=== PATIENT | male | born 1950 | race Caucasian/White ===

== ENCOUNTER 2017-08-21 17:33 | Inpatient (IN) | payer MEDICARE ==
[~2017-08-21] VITALS: Ht 157.5 cm; Wt 76.6 kg
[2017-08-21 18:13] LABS: BASOPHILS 0.1 % (0-2); EOSINOPHILS 0.1 % (0-7); HEMOGLOBIN 16.1 g/dL (13.5-17.5); IMMATURE GRANULOCYTES 0.3 % (0-5); LYMPHOCYTES 2.2 % (15-50); MCH 31.6 pg (26.0-34.0); MCHC 33.5 g/dL (31.0-37.0); MCV 94.3 fL (80.0-100.0); MEAN PLATELET VOLUME 9.8 fL (7.4-10.4); MONOCYTES 2.2 % (2-11); NEUTROPHILS 95.1 % (40-80); PLATELET COUNT 272 10x3/uL (130-400); RBC 5.09 10x6/uL (4.20-6.10); RDW 12.6 % (11.5-14.5); WBC 17.7 10x3/uL (4.8-10.8)
[2017-08-21 18:29] LABS: ALBUMIN 4.3 g/dL (3.4-5.0); ANION GAP 14.3 mmol/L (8-16); BILIRUBIN - TOTAL 0.33 mg/dL (0.2-1.3); CALCIUM 9.4 mg/dL (8.5-10.1); CREATININE - SERUM 1.2 mg/dL (0.6-1.3); POTASSIUM - SERUM 4.3 mmol/L (3.5-5.1); PROTEIN - SERUM 8.1 g/dL (6.4-8.2)
[2017-08-21 18:33] LABS: APTT 39.3 SECONDS (22.8-39.4); INR 2.39 (0.85-1.17); PROTIME 26.2 SECONDS (11.6-15.0)
[2017-08-21 20:10] LABS: APPEARANCE CLEAR (CLEAR); COLOR YELLOW (YELLOW); NITRITE NEGATIVE (NEGATIVE); PROTEIN TRACE mg/dL (NEGATIVE); SPECIFIC GRAVITY 1.025 (1.005-1.020)
[2017-08-21 20:11] LABS: BILIRUBIN NEGATIVE (NEGATIVE); GLUCOSE 50 mg/dL (NEGATIVE); KETONE NEGATIVE (NEGATIVE); UROBILINOGEN NORMAL (NORMAL)
--- NOTE | 2017-08-21 22:30 | NUR ---
PT ARRIVED TO MEDICAL SURGICAL UNIT WITH AND HOSPITAL STAFF, PT ALERT AND ORIENTED.
[2017-08-21] MEDS ORDERED: CORDARONE200 MG PO (23:30)
[2017-08-21] MEDS ORDERED: LISINOPRIL5 MG PO (23:30)
[2017-08-21] MEDS ORDERED: TYLENOL PM1 TAB PO (23:31)
[2017-08-21] MEDS ORDERED: IBUPROFEN400 MG PO (23:33)
[2017-08-21] MEDS ORDERED: COUMADIN1 MG PO (23:34)
[2017-08-21 23:38] VITALS: BP 119/71; BMI 30.8
[2017-08-22] VITALS (13 sets, daily range): BP systolic 116–146; BP diastolic 56–89; Ht 157.5 cm; Wt 76.6 kg
--- NOTE | 2017-08-22 03:20 | NUR ---
PT HAS SMALL AMOUNT OF BLOOD CLOT FROM RECTAL AREA.
--- NOTE | 2017-08-22 03:54 | NUR ---
REST QUIETLY IN BED, EYE CLOSE, CALL LIGHT IN REACH.
--- NOTE | 2017-08-22 07:17 | NUR ---
REPORT RECEIVED, ASSUMED CARE OF PT. RESTING, FAMILY AT BEDSIDE. R AC IV INFUSINGS ORDERED, DRSG C/D/I. NO NEEDS VOICED AT THIS TIME. BED IN LOWEST POSITION, SIDE RAILS UP X 2, CALL LIGHT WITHIN REACH.
[2017-08-22 09:33] LABS: BASOPHILS 0.1 % (0-2); EOSINOPHILS 0.5 % (0-7); HEMATOCRIT 43.5 % (42.0-54.0); HEMOGLOBIN 14.3 g/dL (13.5-17.5); IMMATURE GRANULOCYTES 0.2 % (0-5); LYMPHOCYTES 9.6 % (15-50); MCH 31.3 pg (26.0-34.0); MCHC 32.9 g/dL (31.0-37.0); MCV 95.2 fL (80.0-100.0); MEAN PLATELET VOLUME 9.8 fL (7.4-10.4); MONOCYTES 6.5 % (2-11); NEUTROPHILS 83.1 % (40-80); RBC 4.57 10x6/uL (4.20-6.10); RDW 12.9 % (11.5-14.5); WBC 13.3 10x3/uL (4.8-10.8)
[2017-08-22 09:42] LABS: PLATELET COUNT 209 10x3/uL (130-400)
[2017-08-22 10:19] LABS: ALBUMIN 3.4 g/dL (3.4-5.0); ANION GAP 14.1 mmol/L (8-16); BILIRUBIN - TOTAL 0.39 mg/dL (0.2-1.3); CALCIUM 8.5 mg/dL (8.5-10.1); CARBON DIOXIDE 25.6 mmol/L (21.0-32.0); CREATININE - SERUM 1.1 mg/dL (0.6-1.3); POTASSIUM - SERUM 3.7 mmol/L (3.5-5.1); PROTEIN - SERUM 6.2 g/dL (6.4-8.2)
--- NOTE | 2017-08-22 13:55 | NUR ---
REPORT CALLED TO ZAHIRA IN ICU, WILL CALL BACK WHEN READY FOR TRANSFER AFTER ROOM CLEANED.
--- NOTE | 2017-08-22 14:00 | NUR ---
PT TRANSFERRED VIA WHEELCHAIR TO ICU
--- NOTE | 2017-08-22 19:15 | NUR ---
RECEIVED CARE OF PT, ASSESSMENT PER FLOWSHEET. PT ALERT AND ORIENTED X 4, ON RA, BREATH SOUNDS CTA, CAF ON CM AT A RATE OF 84, PPP. C/O SOME TENDERNESS WITH PALP OVER LT UPPER QUADRANT OF ABDOMEN. ASSISTED PT TO BSC, VOIDED HALF-DOLLAR SIZE AMT OF BRIGHT RED BLOOD WITH SMALL CLOTS-PROVIDED OWN PERICARE AND BACK TO BED WITHOUT DIFFICULTY. VSS, CALL LIGHT IN REACH, WILL MONITOR.
--- NOTE | 2017-08-22 19:59 | NUR ---
PT C/O NAUSEA AND ABDOMINAL PAIN 5/10 ON VPS, PRN ZOFRAN 4MG AND OXYCODONE 5/325MG ADMINISTERED PER MD ORDER AND PT REQUEST, WILL MONITOR.
--- NOTE | 2017-08-22 21:30 | NUR ---
PT AND SON IN ROOM, UPDATED REGARDING PT CONDITION AND PLAN, ALL VERBALIZE UNDERSTANDING. ASSISTED PT TO BSC, VOIDED 1/2CM X 1/2CM SPOT OF BRIGHT RED BLOOD PER RECTUM, PROVIDED OWN PERICARE, BACK TO BED WITH MINIMAL ASSIST.
--- NOTE | 2017-08-22 22:10 | NUR ---
JELLO AND ICE WATER PROVIDED PER REQUEST, PT CONSUMED 100%, DENIES PAIN OR ANY NEEDS AT THIS TIME. VSS
--- NOTE | 2017-08-22 23:30 | NUR ---
REASSESSMENT PER FLOWSHEET, NO ACUTE CHANGES NOTED AT THIS TIME. VSS, CONT POC.
[2017-08-23] VITALS (21 sets, daily range): BP systolic 101–136; BP diastolic 61–96
[2017-08-23 03:34] LABS: BASOPHILS 0.2 % (0-2); HEMATOCRIT 37.8 % (42.0-54.0); HEMOGLOBIN 12.4 g/dL (13.5-17.5); IMMATURE GRANULOCYTES 0.3 % (0-5); LYMPHOCYTES 9.6 % (15-50); MCH 31.5 pg (26.0-34.0); MCHC 32.8 g/dL (31.0-37.0); MCV 95.9 fL (80.0-100.0); MEAN PLATELET VOLUME 9.8 fL (7.4-10.4); MONOCYTES 8.6 % (2-11); NEUTROPHILS 79.3 % (40-80); RBC 3.94 10x6/uL (4.20-6.10)
[2017-08-23 03:35] LABS: PLATELET COUNT 154 10x3/uL (130-400); WBC 6.4 10x3/uL (4.8-10.8)
[2017-08-23 03:48] LABS: INR 2.07 (0.85-1.17); PROTIME 23.4 SECONDS (11.6-15.0)
--- NOTE | 2017-08-23 03:50 | NUR ---
PT RESTING IN BED WITH EYES CLOSED, VSS, CONT POC.
[2017-08-23 03:53] LABS: ALBUMIN 3.1 g/dL (3.4-5.0); ALKALINE PHOSPHATASE 76 U/L (46-116); ALT (SGPT) 33 U/L (10-68); AMYLASE - SERUM 31 U/L (25-115); BILIRUBIN - TOTAL 0.61 mg/dL (0.2-1.3); CALC OSMOLALITY 291 mosm/kg (275-300); CALCIUM 8.2 mg/dL (8.5-10.1); CARBON DIOXIDE 27.1 mmol/L (21.0-32.0); CHLORIDE - SERUM 110 mmol/L (98-107); GLUCOSE 89 mg/dL (74-106); LIPASE 97 U/L (73-393); POTASSIUM - SERUM 4.1 mmol/L (3.5-5.1); PROTEIN - SERUM 5.8 g/dL (6.4-8.2); SODIUM 146 mmol/L (136-145); UREA NITROGEN 17 mg/dL (7-18); eGFR NON AFRICAN AMERICAN 79 mL/min (90-120)
--- NOTE | 2017-08-23 05:23 | NUR ---
AM LABS REVIEWED, NOTHING TO TREAT PER ELECTROLYTE PROTOCOL. PT RESTING IN BED WITH EYES CLOSED, VSS, CONT POC.
--- NOTE | 2017-08-23 19:15 | NUR ---
RESUMED CARE OF PT, ASSESSMENT PER FLOWSHEET. PT ALERT AND ORIENTED X 4, SITTING UP IN BED IN NO APPARENT DISTRESS, HR CAF AT 79 ON MONITOR, BREATH SOUNDS CTA, PPP, RUQ ABD MILDLY TENDER TO PALP, C/O ABD PAIN 2/10 ON VPS, DOES NOT REQUEST ANYTHING FOR PAIN AT THIS TIME, BED LOW CALL LIGHT IN REACH, ALL OTHER VSS.
--- NOTE | 2017-08-23 19:37 | NUR ---
REPORT CALLED TO [facility] ON [facility], ALL QUESTIONS ANSWERED.
--- NOTE | 2017-08-23 19:59 | NUR ---
PT TRANSFERRED TO ROOM 2227 VIA W/C, ACCEPTING RNLENO IN ROOM. URINAL PROVIDED, BED LOW, CALL LIGHT IN REACH.
--- NOTE | 2017-08-23 20:00 | NUR ---
ARRIVED ON UNIT VIA WHEELCHAIR ESCORTED BY ICU NURSES. ORIENTED TO ROOM AND CALL LIGHT SYSTEM. IV FLUIDS TO RIGHT AC AT 100 ML / HR PER ORDER. TEACHING DONE ON NEED FOR STOOL SAMPLE COLLECTION. VITALS STABLE AND PT IS AFEBRILE. WILL MONITOR CLOSLEY FOR NEEDS. CALL LIGHT WITHIN REACH. BED IN LOWEST POSITION AND LOCKED. SIDE RAILS UP X2 FOR SAFETY.
--- NOTE | 2017-08-23 20:25 | NUR ---
HS MEDICATIONS GIVEN. GAVE SNACK OF JELLO AND JUICE. WILL CONTINUE TO MONITOR FOR NEEDS. IS AT BEDSIDE.
--- NOTE | 2017-08-23 20:40 | NUR ---
COLLECTED STOOL AND DELIVERED TO LAB FOR ORDERED LAB STUDIES.
--- NOTE | 2017-08-23 21:42 | NUR ---
GAVE BENADRYL AND PERCOCET PER PRN ORDERS FOR PAIN AND TO AIDE IN SLEEP. WILL CONTINUE TO MONITOR FOR NEEDS.
[2017-08-24 05:07] VITALS: BP 139/77
[2017-08-24 06:51] LABS: BASOPHILS 0.3 % (0-2); EOSINOPHILS 2.8 % (0-7); HEMOGLOBIN 12.7 g/dL (13.5-17.5); LYMPHOCYTES 11.6 % (15-50); MCH 31.1 pg (26.0-34.0); MCHC 32.6 g/dL (31.0-37.0); MCV 95.4 fL (80.0-100.0); MEAN PLATELET VOLUME 9.7 fL (7.4-10.4); MONOCYTES 8.7 % (2-11); NEUTROPHILS 76.6 % (40-80); PLATELET COUNT 155 10x3/uL (130-400); RBC 4.09 10x6/uL (4.20-6.10); RDW 12.6 % (11.5-14.5); WBC 5.8 10x3/uL (4.8-10.8)
[2017-08-24 07:08] LABS: INR 1.92 (0.85-1.17)
[2017-08-24 07:09] LABS: CALC OSMOLALITY 290 mosm/kg (275-300); CALCIUM 8.4 mg/dL (8.5-10.1); CARBON DIOXIDE 27.1 mmol/L (21.0-32.0); CHLORIDE - SERUM 109 mmol/L (98-107); GLUCOSE 95 mg/dL (74-106); POTASSIUM - SERUM 3.8 mmol/L (3.5-5.1); SODIUM 146 mmol/L (136-145); eGFR NON AFRICAN AMERICAN 79 mL/min (90-120)
[2017-08-24 07:10] LABS: UREA NITROGEN 12 mg/dL (7-18)
--- NOTE | 2017-08-24 07:25 | NUR ---
REPORT RECEIVED FROM MEDICAL COLLECTIONS NURSE. CALL LIGHT IN REACH.
--- NOTE | 2017-08-24 08:08 | NUR ---
ASSESSMENT COMPLETED. DENIES PAIN OR NEEDS. CALL LIGHT IN REACH. WILL CONTINUE WITH PLAN OF CARE.
[2017-08-24 08:14] VITALS: BP 127/74
--- NOTE | 2017-08-24 08:17 | NUR ---
OFFERED SCDs BUT REFUSED.
--- NOTE | 2017-08-24 09:30 | NUR ---
IV CONVERTED TO SL PER PATIENT REQUEST TO SHOWER. PATIENT AND FAMILY ASKING ABOUT COLONOSCOPY TOMORROW. EXPLAINED THE ORDER HAD NOT BEEN PLACED YET AND THE GI DOCTOR WOULD BE THE ONE TO DECIDE THE DATE. VOICED UNDERSTANDING.
--- NOTE | 2017-08-24 10:12 | NUR ---
AM MEDS ADMINISTERED. DILAUDID 1 MG SIVP. REFUSES SCDs. [facility] PLACED IN ROOM FOR STOOL SAMPLE FOR OB. PATIENT AWARE.
[2017-08-24 11:51] VITALS: BP 124/88
--- NOTE | 2017-08-24 12:13 | NUR ---
WANTED IV MOVED TO ANOTHER SITE. ATTEMPTED TO RESITE IT TO RIGHT HAND WITH 20 GA X1 STICK WITH NO SUCCESS. PATIENT DID NOT WANT ME TO ATTEMPT IT AGAIN.
--- NOTE | 2017-08-24 12:22 | NUR ---
FSBS 92. SPOKE WITH FRANK COOPER, ABOUT STOPPING BLOOD SUGARS. STATES IT IS OK.
--- NOTE | 2017-08-24 14:28 | NUR ---
FLAGYL 500 MG IVPB PER ORDER. WAITING ON DR. RAMOS TO ROUND. EXPLAINED TO THEM THAT IT MIGHT BE AFTER CLINIC WHEN SHE CAN MAKE IT.
[2017-08-24 16:05] VITALS: BP 115/57
--- NOTE | 2017-08-24 16:55 | NUR ---
DENIES NEEDS AT THIS TIME. CALL LIGHT IN REACH.
--- NOTE | 2017-08-24 18:30 | NUR ---
NO CHANGES IN INITIAL ASSESSMENT. CALL LIGHT IN REACH. STILL REFUSES SCDs. WILL CONTINUE WITH PLAN OF CARE.
[2017-08-24 20:21] VITALS: BP 122/59
--- NOTE | 2017-08-24 23:50 | NUR ---
1939)REC'D IN BED WATCHING TV.FAMILY MEMBER AT BEDSIDE.DENIES ANY PAIN OR DISCOMFORT AT PRESENT TIME.PREP STARTED FOR EGD 08/25/17. REINFORCED NPO AT OK. VOICES UNDERSTANDING
[2017-08-25 03:50] VITALS: BP 153/74
[2017-08-25 07:29] LABS: ALBUMIN 3.2 g/dL (3.4-5.0); ALKALINE PHOSPHATASE 79 U/L (46-116); ALT (SGPT) 43 U/L (10-68); BILIRUBIN - TOTAL 0.33 mg/dL (0.2-1.3); CALC OSMOLALITY 293 mosm/kg (275-300); CALCIUM 8.2 mg/dL (8.5-10.1); CARBON DIOXIDE 29.1 mmol/L (21.0-32.0); CHLORIDE - SERUM 111 mmol/L (98-107); GLUCOSE 111 mg/dL (74-106); POTASSIUM - SERUM 3.5 mmol/L (3.5-5.1); PROTEIN - SERUM 6.4 g/dL (6.4-8.2); SODIUM 148 mmol/L (136-145); UREA NITROGEN 9 mg/dL (7-18); eGFR NON AFRICAN AMERICAN 79 mL/min (90-120)
[2017-08-25 07:34] LABS: BASOPHILS 0.2 % (0-2); HEMATOCRIT 39.7 % (42.0-54.0); HEMOGLOBIN 13.2 g/dL (13.5-17.5); IMMATURE GRANULOCYTES 0.2 % (0-5); LYMPHOCYTES 10.5 % (15-50); MCH 30.9 pg (26.0-34.0); MCHC 33.2 g/dL (31.0-37.0); MEAN PLATELET VOLUME 10.1 fL (7.4-10.4); MONOCYTES 10.7 % (2-11); NEUTROPHILS 76.4 % (40-80); PLATELET COUNT 165 10x3/uL (130-400); RBC 4.27 10x6/uL (4.20-6.10); RDW 12.6 % (11.5-14.5); WBC 5.5 10x3/uL (4.8-10.8)
[2017-08-25 07:39] LABS: INR 1.88 (0.85-1.17); PROTIME 21.6 SECONDS (11.6-15.0)
--- NOTE | 2017-08-25 08:15 | NUR ---
PT RESTING IN BED WITH EYES OPEN CALL LIGHT IN REACH WILL MONITER
[2017-08-25 08:38] VITALS: BP 137/71
--- NOTE | 2017-08-25 12:30 | NUR ---
PT TO GI LAB FOR COLONOSCOPY
[2017-08-25 12:56] VITALS: BP 143/54
--- NOTE | 2017-08-25 12:57 | NUR ---
PT SEEN. FOR GI LAB THIS DAY. STATES HAS BEEN NPO SINCE MIDNIGHT-DID NOT PASS ANY BLOOD DURING PREP-BUT DID HAVE SOME NAUSEA AND VOMITED SOME OF THE PREP UP. STAES NO CRAMPING TO LOWER ABDOMEN. CALL LIGHT IN REACH
--- NOTE | 2017-08-25 13:59 | NUR ---
NUTRITION F/U CHART REVIEWED, PT OOR FOR PROCEDURE. CURRENTLY NPO. WILL PROVIDE DIET WHEN RESUMED, MONITOR PO INTAKE. RD FOLLOWING
[2017-08-25 16:29] VITALS: BP 152/77
--- NOTE | 2017-08-25 17:49 | NUR ---
PT RESTING IN BED WITH EYES OPEN CALL LIGHT IN REACH WILL MONITER
[2017-08-25 20:00] VITALS: BP 129/69
--- NOTE | 2017-08-25 20:18 | NUR ---
REC'D. IN BED EYES CLOSED RESP. DEEP AND EVEN.WILL CONTINUE TO MONITOR FOR ANY CHGES. AND FOLLOW CURRENT PLAN OF CARE
[2017-08-26 04:00] VITALS: BP 120/59
--- NOTE | 2017-08-26 05:44 | NUR ---
PATIENT RESTING IN BED WITH EYES CLOSED AND NO VISIBLE SIGNS OF DISTRESS. BED IN LOWEST POSITION AND CALL LIGHT WITHIN REACH.
[2017-08-26 06:04] LABS: BASOPHILS 0.2 % (0-2); EOSINOPHILS 2.9 % (0-7); HEMATOCRIT 37.5 % (42.0-54.0); HEMOGLOBIN 12.6 g/dL (13.5-17.5); IMMATURE GRANULOCYTES 0.2 % (0-5); LYMPHOCYTES 11.2 % (15-50); MCHC 33.6 g/dL (31.0-37.0); MCV 92.4 fL (80.0-100.0); MEAN PLATELET VOLUME 10.3 fL (7.4-10.4); MONOCYTES 9.5 % (2-11); PLATELET COUNT 190 10x3/uL (130-400); RBC 4.06 10x6/uL (4.20-6.10); RDW 12.7 % (11.5-14.5); WBC 4.8 10x3/uL (4.8-10.8)
[2017-08-26 06:26] LABS: ALBUMIN 2.8 g/dL (3.4-5.0); ALKALINE PHOSPHATASE 69 U/L (46-116); ALT (SGPT) 42 U/L (10-68); CALC OSMOLALITY 291 mosm/kg (275-300); CALCIUM 8.3 mg/dL (8.5-10.1); CARBON DIOXIDE 28.8 mmol/L (21.0-32.0); CHLORIDE - SERUM 111 mmol/L (98-107); GLUCOSE 130 mg/dL (74-106); POTASSIUM - SERUM 3.1 mmol/L (3.5-5.1); PROTEIN - SERUM 5.7 g/dL (6.4-8.2); SODIUM 147 mmol/L (136-145); UREA NITROGEN 7 mg/dL (7-18); eGFR NON AFRICAN AMERICAN 79 mL/min (90-120)
--- NOTE | 2017-08-26 07:22 | NUR ---
PT NOTE. NO COMPLAINTS THIS AM. STATES SMALL AMOUNT OF BLEEDING THIS AM WITHS STOOL. STATES LOW ABDOMEN IS LESS TENDER THIS AM. CALL LIGHT IN REACH
--- NOTE | 2017-08-26 07:25 | NUR ---
REPORT RECEIVED FROM LEGAL REFEREE NURSE. CALL LIGHT IN REACH.
[2017-08-26 08:36] VITALS: BP 155/90
--- NOTE | 2017-08-26 08:45 | NUR ---
ASSESSMENT COMPLETED. REFUSES SCDs. CALL LIGHT IN REACH. WILL CONTINUE WITH PLAN OF CARE.
[2017-08-26 10:31] LABS: INR 1.77 (0.85-1.17); PROTIME 20.6 SECONDS (11.6-15.0)
--- NOTE | 2017-08-26 10:55 | NUR ---
AM MEDS ADMINISTERED. CALL LIGHT IN REACH.
--- NOTE | 2017-08-26 12:16 | NUR ---
AISHA PO. CALL LIGHT IN REACH.
[2017-08-26 14:20] VITALS: BP 149/81
--- NOTE | 2017-08-26 14:20 | NUR ---
NO NEEDS VOICED AT THIS TIME. CALL LIGHT IN REACH.
--- NOTE | 2017-08-26 14:52 | NUR ---
CHANTAL HUNT CALL LIGHT IN REACH.
--- NOTE | 2017-08-26 15:36 | NUR ---
Patient Name: CEDRICK DONG Admission Status: ER Accout number: [id number] Admission Date: 08-21-2017 : 1950 Admission Diagnosis:TRACEY Attending: LEONA ALVES Current LOS: 5 Anticipated DC Date: 08-27-2017 Planned Disposition: Home Primary Insurance: Simmr Discharge Planning Comments: CM MET WITH PATIENT REGARDING D/C NEEDS AND PLANS. PATIENT STATED HE LIVES WITH HIS (KAYLA) AND SHE WILL DRIVE HIM HOME AT DISCHARGE. PATIENT HAS NO STEPS TO ENTER HOME AND 1 FLIGHT IN HOME THAT HE DOES NOT USE AT ALL. PATIENT IS INDEPENDENT WITH HIS CARE AND HAS A WALKER, WHEELCHAIR, BSC, SHOWER CHAIR, AND CANE AT HOME. PATIENT DOES NOT HAVE A PCP AND USES [facility] ON [facility]. PATIENT IS REFUSING HOME HEALTH AT THIS TIME. CM WILL CONTINUE TO FOLLOW PATIENT WITH D/C NEEDS AND PLANS. [facility]. KAYLA () [phone] Cotton Farmworker: Helena Handy Is the patient Alert and Oriented? Yes 0 * How many steps to enter\exit or inside your home? 0 0 * PCP NONE 0 * Pharmacy [facility] ON [address] 0 * Preadmission Environment Home with Family 0 * ADLs Independent 0 * Equipment Bedside Commode Cane Shower Chair Walker Wheelchair 0 * List name and contact numbers for known caregivers / representatives who currently or will assist patient after discharge: KAYLA () [phone] 0 * Community resources currently utilized None 0 * Additional services required to return to the preadmission environment? Yes 0 * Can the patient safely return to the preadmission environment? Yes 0 * Has this patient been hospitalized within the prior 30 days at any hospital? No 0 Grand Total: 0
[2017-08-26 16:23] VITALS: BP 148/89
[2017-08-26 23:09] VITALS: BP 150/88
--- NOTE | 2017-08-27 00:03 | NUR ---
RECE'D. REQUESTING TYLENOL PM NOW STATES READY FOR BED.DENIES ANY ABDOMINAL DISCOMFORT AT PRESENT TIME.WILL CONTINUE TO MONITOR FOR ANY CHGES. AND FOLLOW URRENT PLAN OF CARE
[2017-08-27 01:20] VITALS: BP 144/75
[2017-08-27 05:25] LABS: BASOPHILS 0.1 % (0-2); EOSINOPHILS 3.1 % (0-7); HEMOGLOBIN 12.5 g/dL (13.5-17.5); IMMATURE GRANULOCYTES 0.1 % (0-5); LYMPHOCYTES 10.4 % (15-50); MCH 31.1 pg (26.0-34.0); MCHC 33.8 g/dL (31.0-37.0); MEAN PLATELET VOLUME 9.9 fL (7.4-10.4); MONOCYTES 9.9 % (2-11); NEUTROPHILS 76.4 % (40-80); PLATELET COUNT 175 10x3/uL (130-400); RBC 4.02 10x6/uL (4.20-6.10); RDW 12.7 % (11.5-14.5)
[2017-08-27 05:32] LABS: INR 1.5 (0.85-1.17)
[2017-08-27 05:35] LABS: WBC 6.8 10x3/uL (4.8-10.8)
[2017-08-27 05:44] LABS: ALBUMIN 2.9 g/dL (3.4-5.0); ANION GAP 12.3 mmol/L (8-16); BILIRUBIN - TOTAL 0.4 mg/dL (0.2-1.3); CALCIUM 8.2 mg/dL (8.5-10.1); CARBON DIOXIDE 26.1 mmol/L (21.0-32.0); CREATININE - SERUM 1.1 mg/dL (0.6-1.3); PROTEIN - SERUM 5.7 g/dL (6.4-8.2)
[2017-08-27 05:48] VITALS: BP 137/72
[2017-08-27 05:48] LABS: POTASSIUM - SERUM 3.4 mmol/L (3.5-5.1)
--- NOTE | 2017-08-27 07:57 | NUR ---
REPORT RECEIVED FROM COLLEGE AND CAREER COUNSELOR NURSE. CALL LIGHT IN REACH.
[2017-08-27 09:07] VITALS: BP 158/95
--- NOTE | 2017-08-27 09:51 | NUR ---
ASSESSMENT COMPLETED. AM MEDS ADMINISTERED. STILL REFUSING SCDs. NO IV ACCESS. STATES HE IS SUPPOSED TO GET TO GO HOME TODAY. CALL LIGHT IN REACH. WILL CONTINUE WITH PLAN OF CARE.
[2017-08-27] MEDS ORDERED: FLAGYL500 MG PO (10:05)
[2017-08-27] MEDS ORDERED: Levaquin PO (10:05)
[2017-08-27] MEDS ORDERED: PROSCAR5 MG PO (10:06)
[2017-08-27] MEDS ORDERED: FLORAJEN3 CAPS460 MG PO (10:06)
--- NOTE | 2017-08-27 12:41 | NUR ---
AISHA HUNT DC INSTRUCTIONS EXPLAINED TO PATIENT. VERBALIZED UNDERSTANDING.
--- NOTE | 2017-08-27 12:51 | NUR ---
RX FOR LEVAQUIN HANDED TO PATIENT.
--- NOTE | 2017-08-27 13:15 | NUR ---
PT NOTE-SEEN THIS AM. NO NEEDS ATT HIS TIME-FOR DISCHARGE TODAY. IS NOT PASSING ANY MORE DARK STOOLS. CALL LIGHT IN REACH
--- NOTE | 2017-08-27 15:19 | NUR ---
COUMADIN AND FLAGYL PO. STILL WAITING ON TO PICK HIM UP.
--- NOTE | 2017-08-27 15:28 | NUR ---
DC'D TO VEHICLE WITH . REFUSES WC.
[2017-08-28 03:10] LABS: OVA + PARASITE EXAM Final report (())
== END 2017-08-27 15:28 | disposition home or self-care (01) | DRG 378 ==
LOC: D.ER 17:33 → D.ICU 21:13 → D.MS 21:13 → D.ICU 08-22 14:40 → D.MS 08-23 19:55 → D.SDCHOLD 08-24 15:47 → D.MS 08-24 15:49
PROVIDERS: Emergency Medicine; Family Medicine; Internal Medicine Gastroenterology; Nurse Practitioner Family; ADMIT Emergency Medicine
PROC: 0DBL8ZX Excision of Transverse Colon, Via Natural or Artificial Opening Endoscopic, Diagnostic (ICD-10-PCS; 2017-08-25)
PROC: 0DBB8ZX Excision of Ileum, Via Natural or Artificial Opening Endoscopic, Diagnostic (ICD-10-PCS; 2017-08-25)
PROC: 0DBK8ZX Excision of Ascending Colon, Via Natural or Artificial Opening Endoscopic, Diagnostic (ICD-10-PCS; principal; 2017-08-25 12:31)
DX: K92.1 Melena (principal); A09 Infectious gastroenteritis and colitis, unspecified; N13.8 Other obstructive and reflux uropathy; K57.32 Diverticulitis of large intestine without perforation or abscess without bleeding; R21 Rash and other nonspecific skin eruption; I48.2 Chronic atrial fibrillation; Z79.01 Long term (current) use of anticoagulants; N40.1 Benign prostatic hyperplasia with lower urinary tract symptoms

== ENCOUNTER 2018-09-10 08:49 | Emergency (ER) | payer MEDICARE ==
[~2018-09-10] VITALS: Ht 157.5 cm; Wt 72.7 kg
[~2018-09-10 08:49] MED LIST: CORDARONE200 MG PO; COUMADIN1 MG PO; FLAGYL500 MG PO; FLORAJEN3 CAPS460 MG PO; IBUPROFEN400 MG PO; LISINOPRIL5 MG PO; Levaquin PO; PROSCAR5 MG PO; TYLENOL PM1 TAB PO
[2018-09-10 08:52] VITALS: Ht 157.5 cm; Wt 72.7 kg
[2018-09-10] MEDS ORDERED: DOXYCYCLINE HY100 M2 PO (10:47)
[2018-09-10] MEDS ORDERED: TESSALON PERLE100 MG PO (10:48)
[2018-09-10] MEDS ORDERED: XOPENEX HFA15 GM INH (10:50)
[2018-09-10 11:43] VITALS: BP 140/70
== END 2018-09-10 11:44 | disposition home or self-care (01) ==
LOC: D.ER 08:49
DX: J40 Bronchitis, not specified as acute or chronic (principal); I48.2 Chronic atrial fibrillation; Z79.01 Long term (current) use of anticoagulants; R09.89 Other specified symptoms and signs involving the circulatory and respiratory systems